=== PATIENT | male | born 1950 | race Caucasian/White ===

== ENCOUNTER 2018-09-22 06:39 | Day surgery (SDC) | payer OTHER, SELFPAY ==
[2018-09-22] MEDS: SODIUM CHLORIDE 0.9% 1,000 ML 150 ML IV (07:20)
[2018-09-22 07:21] VITALS: BP 121/83; PULSE 84; RESP 16; TEMP 36.9; O2SAT 94; BMI 26.7
--- NOTE | 2018-09-22 08:11 | PM.HP.1 ---
History of Present Illness Date Patient Seen: 09/22/18 Time Patient Seen: 08:12 Chief complaint: [id number] SCREENING COLONOSCOPY Narrative: 68-year-old man presents for 1st ever screening colonoscopy. Brother with history of cancer at 72, Sister with polyp No intestinal complaints Prep went well Patient History Medical History (Updated 09/22/18 @ 08:12 by Cedrick Marx MD) Arthritis (Acute) Social History household members: none Family & Social History Social History: household members none Meds Home Medications Medication Instructions Recorded Confirmed Type atorvastatin 20 mg PO DAILY 09/22/18 09/22/18 History Allergies Allergy/AdvReac Type Severity Reaction Status Date / Time No Known Drug Allergies Allergy Verified 09/22/18 07:35 Review of Systems Constitutional Constitutional: Denies fever(s) Eyes Eyes: Denies bulging eyes ENT Ears, Nose, Mouth, and Throat: No lip swelling Cardiovascular Cardiovascular: Denies generalize swelling Respiratory Respiratory: Denies stridor Gastrointestinal Gastrointestinal: Denies coffee ground emesis Musculoskeletal Musculoskeletal: Denies loss of height Integumentary/Breasts Skin/Breast: Denies wounds Neurologic Neurologic: Denies abnormal speech and Denies confusion Psychiatric Psychiatric: Denies confusion Endocrine Endocrine: Denies deepening of the voice Hematologic/Lymphatic Hematologic/Lymphatic: Denies lymphadenopathy Allergic/Immunologic Allergic/Immunologic: Denies lip swelling Exam Vital Signs (past 8 hours): - 09/22/18 07:21 Temperature 98.4 F Pulse Rate 84 Respiratory Rate 16 Blood Pressure 121/83 Pulse Oximetry 94 Oxygen Delivery Method Room Air Const General: cooperative and healthy appearing Orientation: alert HENMT Head: normal to inspection Nose: nares normal Mouth: oral mucosae normal and lip normal Eyes Eyelids: eyelids normal Conjunctivae: conjunctivae normal Sclera: sclerae normal Neck Neck: supple and other (No thyromegally) Chest Chest: other (LCTAB , regular respiratory effort) Cardio Rhythm: regular rhythm Heart Sounds: S1 normal, S2 normal, no gallops, no murmurs and no rubs Skin General: no rashes or lesions noted Neuro General: alert and awake Psych Appearance: grossly normal Affect: normal affect Assessment & Plan Assessment & Plan narrative: 68-year-old man here for 1st ever colonoscopy Risks of procedure including bleeding perforation, , hypoxia, missed lesion discussed Patient ready to proceed
[2018-09-22] MEDS: GLUCAGON,HUMAN RECOMBINANT 1 MG/ML VIAL IV (09:11)
[2018-09-22] MEDS: fentaNYL 250 MCG/5 ML INJ IV (10:02)
[2018-09-22] MEDS: MIDAZOLAM 5 MG/5 ML VIAL IV (10:03)
[2018-09-22] MEDS: EPINEPHrine 1 MG/10 ML SYRINGE INJ (10:06)
[2018-09-22 10:29] VITALS: BP 104/56; PULSE 63; RESP 17; TEMP 36.8; O2SAT 95
--- NOTE | 2018-09-22 10:30 | PATH_ITS ---
[facility] Accession Number: [id number] . 01 Material submitted: . PART A: body - POLYP AT 30 PART B: colon - ASCENDING COLON POLYP PART C: colon - HEPATIC FLEXURE POLYP PART D: colon - TRANSVERSE COLON POLYP PART E: colon - LEFT COLON POLYP PART F: colon - PROXIMAL SIGMOID COLON POLYP PART G: colon - POLYP DISTAL SIGMOID COLON AT 20 . 01 Clinical history: . B-E,F: SESSILE . 02 Diagnosis: A. Colon at 30 cm, Polyp: Colonic mucosa with no diagnostic abnormality, consistent with polypoid redundancy. Negative for serrated lesion, dysplasia or malignancy. . B. Ascending Colon, Polyp: Tubular adenoma. . C. Hepatic Flexure, Polyp: Tubular adenoma. . D. Transverse Colon Polyp: Colonic mucosa with no diagnostic abnormality, consistent with polypoid redunancy. Negative for serrated lesion, dysplasia or malignancy. . E. Left Colon, Polyp: Tubular adenoma. . F. 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 See Cancer Case Summary. Carcinoma free of cauterized stalk margin by 8 mm. . G. Distal Sigmoid Colon, at 20 cm, Polyps: Tubulovillous adenoma, fragmented. Negative for high-grade dysplasia or malignancy. . CANCER CASE SUMMARY (PART B) Tumor site: Sigmoid colon. Specimen integrity: Intact. Polyp size: Greatest dimension: 1.5 cm. Polyp configuration: Pedunculated with stalk. Stalk length: 0.9 cm. Size of invasive carcinoma: Greatest dimension: 0.5 cm. Histologic type: Adenocarcinoma. Histologic grade: G2-moderately differentiated. Tumor extension: Tumor invades submucosa. Margins: Deep stalk margin uninvolved by invasive carcinoma. Distance of invasive carcinoma from margin: 8 mm. Lymphovascular invasion: Not identified. Tumor budding: Number of tumor buds in one hot spot field: One. Low score (0-4). Type of polyp in which invasive carcinoma arose: Tubulovillous adenoma. [facility]/09/28/2018 . 02 Comment: Part F) Immunohistochemical stains for DNA mismatch repair proteins are pending and results will be issued in an addendum. . As part of routine quality control associate, Dr. Hoyt has reviewed part F of this case and agrees with the diagnosis of superficially invasive adenocarcinoma. The finding of superfically invasive adenocarcinoma was reported to Dr. Marx via his nurse Sherry by Dr. Jas Person on 09/28/2018 at 2:00PM. . 02 Electronically signed: . Jas Person MD, PhD, Pathologist NPI- [id number] . 01 Gross description: . Part A: POLYP AT 30: Received in formalin is 1 fragment(s) of delgado, soft tissue measuring 0.3 x 0.3 x 0.1 cm which is entirely submitted and submitted entirely in 1 cassette(s) Part B: ASCENDING COLON POLYP: Received in formalin is 1 fragment(s) of delgado, soft tissue measuring 0.3 x 0.3 x 0.2 cm which is entirely submitted and submitted entirely in 1 cassette(s) Part C: HEPATIC FLEXURE POLYP: Received in formalin is 1 fragment(s) of delgado, soft tissue measuring 0.4 x 0.3 x 0.2 cm which is entirely submitted and submitted entirely in 1 cassette(s) Part D: TRANSVERSE COLON POLYP: Received in formalin is 1 fragment(s) of delgado, soft tissue measuring 0.3 x 0.2 x 0.2 cm which is entirely submitted and submitted entirely in 1 cassette(s) Part E: LEFT COLON POLYP: Received in formalin is 1 fragment(s) of delgado, soft tissue measuring 0.5 x 0.4 x 0.2 cm which is entirely submitted and submitted entirely in 1 cassette(s) Part F: PROXIMAL SIGMOID COLON POLYP: Received in formalin is 1 fragment(s) of delgado, soft tissue measuring 1.5 x 1.1 x 1.4 cm which is serially sectioned and submitted entirely in 3 cassette(s) Part G: POLYP DISTAL SIGMOID COLON AT 20: Received in formalin are 4 fragment(s) of delgado, soft tissue measuring 0.2 x 0.2 x 0.1 cm to 1.1 x 1.0 x 1.8 cm which is serially sectioned and submitted entirely in 3 cassette(s) /DM /DM . 02 Pathologist provided ICD-10: D12.2, D12.3, D12.5, K63.5, C18.7 . 02 CPT . 083028, 956640, 032977, 366544, 110104, 862239, 809279, H25117, B77879 Performed at: 01 [facility] [address] [place] [address], [place], [place] [id number] MD Mo Garces MD Phone: [phone] Performed at: 02 [facility] [address] [place], [place] [id number] MD Osiris Hoyt MD Phone: [phone]
--- NOTE | 2018-09-22 10:39 | P.OP.ENDO_ITS ---
Operative Date/Time/Diagnoses Date of procedure: 09/22/18 Time of procedure: 10:22 Pre-op diagnosis: Family history of colon cancer Post-op diagnosis: other (Numerous polyps, including incompletely resected large sessile polyp in the distal sigmoid colon) Procedure & Clinicians Study performed: Screening colonoscopy -complete Right colon small sessile polypectomy -cold biopsy forceps Hepatic flexure small sessile polypectomy -cold biopsy forceps Transverse colon small sessile polypectomy-cold biopsy forceps Left colon small sessile polypectomy -removed with submucosal injection and hot snare Proximal sigmoid large pedunculated polypectomy -hot snare at 30cm Distal sigmoid colon large sessile partial polypectomy -hot snare 20 cm - tattooed Same procedure as scheduled: Yes Indications: [age] year old man presents for 1st ever screening colonoscopy -his brother was recently diagnosed with colon cancer at in his early 70s, his sister has known history of colon polyps. Surgeon: Cedrick Marx Procedure Notes SCOAP/Timeout: Completed Procedure in detail: Patient was brought to the endoscopy suite a time-out was completed, he was sedated without incident. Over the course of the entire procedure he received a total of 8 mg of midazolam and 275 micro g of fentanyl. A digital rectal exam was performed -this demonstrated a very large but soft prostate. No lesions palpated within the anal canal. 160 cm colonoscope was introduced through the anus and used to navigate through the numerous folds of the rectum and colon. The sigmoid colon itself was quite tortuous -with extensive diverticulosis without evidence of active inflammation. The colon itself was quite redundant and long. Several passes through the proximal portion of the colon were necessary to straighten it and allow the 160 cm scope to reach the cecum. The cecum was clearly identified with the appendiceal orifice as well as a prominent ileocecal valve identified. The scope was slowly withdrawn visualizing and inspecting the mucosa. There was some residual debris left over after the prep that was irrigated and suctioned out for good visualization. Upon withdrawing there were multiple polyps identified. The small polyps within the ascending colon, hepatic flexure, and transverse colonwere easily removed with Jumbo biopsy forceps. A small sessile polyp of the left colon was identified-it was lifted from the submucosa with the injection of saline and easily snared then with a hot snare. It was retrieved via the suction trap. Upon entering into the sigmoid colon at 30 cm a large pedunculated polyp was encountered it had a generous stock. The stalk itself was ensnared -taking with the specimen a reasonable portion of the stalk itself. With bursts of electrocautery the polyp was amputated at the stalk. A net was used to capture the polyp and it with the scope was brought out the anus. The scope was readvanced to the side resection there was no residual polyp. Scope was then withdrawn further a quite large sessile polyp was encountered at 20 cm -this was snared with a hot snare. Due to the size it was unclear whether not there was a stalk initially. This polyp was also grasped with a retrieval net brought out the rectum. Upon reinserted on reinspection the base was hemostatic however there was a sizable amount of polyp remaining. The area of residual polyp was lifted with submucosal injection -and several attempts to snare were attempted -however with the geometry of the sessile base spanning over a fold -I was not able to get the snare around the remaining portions. As a consequence I injected just distally 1 cc of Jami ink submucosally in 4 quadrants. There were no further. Lesions identified Upon reaching the rectum the scope was retroflexed without lesion Prep was adequate Scope withdrawal time: 91 Findings: other findings Specimen(s): other (1 R colon small sessile poly, 2 Hepatic flexure small sessile polyp, 3 Transverse colon small sessile polyp, 4 Left colon small sessile polyp, 5 Prox sigmoid lg pedu polyp, 6 dist sig colon large sessile polyp) Complications: none Impression: 1) extensive sigmoid diverticulosis 2) enlarged but soft prostate 3) Right colon small sessile polyp 4) Hepatic flexure small sessile polyp 5) Transverse colon small sessile polyp 6) Left colon small sessile polyp 7) Proximal sigmoid large pedunculated polyp at 30cm completely removed 8) Distal sigmoid colon large sessile polyp -incompletely removed -tattooed Recommendations: Other recommendation (Follow-up with GI for attempt at complete resection of distal sigmoid colon large sessile polyp) Plan for aftercare: Follow-up with GI Follow up: weeks Disposition: PACU
[2018-09-22 10:42] VITALS: BP 116/76; PULSE 64; RESP 15; TEMP 36.2; O2SAT 97
== END 2018-09-22 10:44 | disposition home or self-care (01) ==
LOC: ENDO 06:41
PROVIDERS: PCP Internal Medicine; Visit Provider Surgery
PROC: 0DJD8ZZ Inspection of Lower Intestinal Tract, Via Natural or Artificial Opening Endoscopic (ICD-10-PCS; CPT 45378; principal; 2018-09-22 07:45)
DX: Z12.11 Encounter for screening for malignant neoplasm of colon (principal); C18.7 Malignant neoplasm of sigmoid colon; D12.2 Benign neoplasm of ascending colon; D12.3 Benign neoplasm of transverse colon; D12.4 Benign neoplasm of descending colon; K63.5 Polyp of colon; K57.30 Diverticulosis of large intestine without perforation or abscess without bleeding; Z80.0 Family history of malignant neoplasm of digestive organs; N40.0 Benign prostatic hyperplasia without lower urinary tract symptoms
CPT/HCPCS: 45381; 45385; 45380; 99152; 99153; J0171; J1610; J2250; J3010

== ENCOUNTER 2019-01-18 11:50 | Day surgery (SDC) | payer OTHER, SELFPAY ==
--- NOTE | 2019-01-18 | PATH_ITS ---
[facility] Accession Number: [id number] . 01 Material submitted: . PART A: colon - TRANSVERSE COLON BIOPSY PART B: colon - SIGMOID POLYP . 01 Clinical history: . COLONOSCOPY W/POSS BX . 02 Diagnosis: A. Transverse Colon, Biopsy: Tubular adenoma. . B. Sigmoid Colon, Polyp, Biopsy: Hyperplastic polyp. MRV 01/19/2019 1253 Local . 02 Electronically signed: . Osiris Hoyt MD, Pathologist NPI- [id number] . 01 Gross description: . Part A: TRANSVERSE COLON BIOPSY: Received in formalin is 1 fragment(s) of delgado, soft tissue measuring 0.2 x 0.1 x 0.1 cm submitted entirely in 1 cassette(s) Part B: SIGMOID POLYP: Received in formalin are multiple fragment(s) of delgado, soft tissue measuring 0.1 x 0.1 x 0.1 cm to 0.3 x 0.2 x 0.2 cm submitted entirely in 1 cassette(s) /[facility] 01/18/2019 2153 Local . 02 Pathologist provided ICD-10: D12.3 . 02 CPT . 588945, 187856 Performed at: 01 [facility] [address] [facility] [place], [place], [place] [id number] MD Mo Garces MD Phone: [phone] Performed at: 02 [facility] [address] [place], [place] [id number] MD Osiris Hoyt MD Phone: [phone]
[2019-01-18 12:22] VITALS: BP 131/85; PULSE 99; RESP 16; TEMP 37; O2SAT 93; BMI 26.4
[2019-01-18] MEDS: SODIUM CHLORIDE 0.9% 1,000 ML 150 ML IV (12:31)
[2019-01-18] MEDS: MIDAZOLAM 5 MG/5 ML VIAL IV (13:53)
[2019-01-18] MEDS: fentaNYL 250 MCG/5 ML INJ IV (13:54)
--- NOTE | 2019-01-18 13:56 | PM.OP.ENDO ---
Operative Date/Time/Diagnoses Date of procedure: 01/18/19 Time of procedure: 13:57 Pre-op diagnosis: See indication and findings Procedure & Clinicians Study performed: Colonoscopy Same procedure as scheduled: Yes Indications: Incompletely removed colon polyps in the sigmoid, need for further treatment Surgeon: Yogi Mcdowell Procedure Notes Procedure in detail: After informed consent was obtained the patient was placed in left lateral decubitus position. The video colonoscope was introduced the rectum slowly advanced cecum. Preparation was good. On slow withdrawal mucosa was carefully examined. The scope was removed. The patient tolerated procedure well. Blood loss none Complications none Sedation Total sedation time 18 minutes Versed 7 mg fentanyl 100 micro g IV titration Findings 1. Extensive sigmoid diverticulosis 2. Small 6 mm sessile colon polyp in the transverse colon Jumbo biopsy removed completely 3. Extensive tattoo in the distal sigmoid. In this area there is no clear single residual polyp. There was a 6 mm polyp which was removed with a cold snare. There were also 3 other 3-4 mm polyps not grouped together which were all removed with Jumbo biopsy forceps and placed in the same jar. I think it is most likely that the polyp that was thought to be of incompletely removed. It may be that cautery used in the area of may have caused a sloughing of most of the residual polyp. Will merely await pathology and suggest follow-up colonoscopy in 1 year.
[2019-01-18 14:03] VITALS: BP 120/78; PULSE 84; RESP 16; TEMP 37.3; O2SAT 94
[2019-01-18 14:08] VITALS: BP 119/76; PULSE 80; RESP 14; O2SAT 95
[2019-01-18 14:13] VITALS: BP 125/81; PULSE 83; RESP 24; O2SAT 95
[2019-01-18 14:21] VITALS: BP 115/73; PULSE 86; RESP 19; TEMP 37.1; O2SAT 96
[2019-01-18 14:30] VITALS: BP 122/75; PULSE 87; RESP 14; TEMP 36.7; O2SAT 95
--- NOTE | 2019-03-07 09:50 | PM.HP.1 ---
History of Present Illness History of Present Illness Date Patient Seen: 01/18/19 Chief complaint: [id number] COLONOSCOPY W/POSS BX Narrative: Residual colon polyp, need for removal Patient History Medical History (Updated 03/07/19 @ 09:51 by Yogi Mcdowell MD) Arthritis (Acute) Family & Social History Social History: household members none Meds Home Medications and Allergies Home Medications Medication Instructions Recorded Confirmed Type atorvastatin 20 mg PO DAILY 09/22/18 01/18/19 History Allergies Allergy/AdvReac Type Severity Reaction Status Date / Time No Known Drug Allergies Allergy Verified 01/18/19 12:21 Exam Vital Signs (past 8 hours): Oxygen Delivery Method Room Air Narrative Exam Narrative: Oropharynx free of lesion Chest clear to AP Cardiac exam reveals no S3 or murmur Assessment & Plan Assessment & Plan narrative: Residual polyp likely present from 09/14 colonoscopy - need to assess and remove if present. RBAs explained.
== END 2019-01-18 14:35 | disposition home or self-care (01) ==
LOC: ENDO 11:54
PROVIDERS: PCP Internal Medicine; Visit Provider Internal Medicine Gastroenterology
PROC: 0DJD8ZZ Inspection of Lower Intestinal Tract, Via Natural or Artificial Opening Endoscopic (ICD-10-PCS; CPT 45378; principal; 2019-01-18 13:30)
DX: D12.5 Benign neoplasm of sigmoid colon (principal); D12.3 Benign neoplasm of transverse colon; K57.30 Diverticulosis of large intestine without perforation or abscess without bleeding
CPT/HCPCS: 45380; J2250; J3010

== ENCOUNTER → 2019-05-01 14:38 | Outpatient (ROUT) | payer MEDICARE, SELFPAY ==
[2019-05-01 15:45] LABS: Alanine Aminotransferase 18 IU/L (<50); Albumin 4.3 g/dL (3.5-5.0); Albumin Globulin Ratio 1.5 (1.0-2.8); Alkaline Phosphatase 72 U/L (38-126); Aspartate Aminotransferase 25 IU/L (17-59); BUN Creatinine Ratio 27.1 (6-22); Bilirubin Total 0.4 mg/dL (0.2-1.3); Blood Urea Nitrogen 19 mg/dL (9-20); Calcium 9.8 mg/dL (8.4-10.2); Carbon Dioxide 28 mmol/L (22-32); Chloride 101 mmol/L (98-107); Cholesterol 139 mg/dL (140-199); Estimated Glomerular Filt Rate > 60.0 mL/min (>60); Globulin 2.9 g/dL (1.7-4.1); Glucose 93 mg/dL (80-110); HDL Cholesterol 45 mg/dL (40-60); HEMOLYSIS < 15 (0-50); LDL Cholesterol Calculated 83 mg/dL (<100); Potassium 4.4 mmol/L (3.4-5.1); Sodium 139 mmol/L (137-145); Total Protein 7.2 g/dL (6.3-8.2); Triglycerides 55 mg/dL (35-150)
== END ==
PROVIDERS: PCP Internal Medicine; Visit Provider Internal Medicine
DX: Z00.00 Encounter for general adult medical examination without abnormal findings (principal); E78.2 Mixed hyperlipidemia; M15.8 Other polyosteoarthritis
CPT/HCPCS: 80053; 80061

== ENCOUNTER → 2020-05-06 11:50 | Outpatient (CLI) | payer MEDICARE, SELFPAY ==
[2020-05-06 13:13] LABS: Alanine Aminotransferase 15 IU/L (<50); Albumin Globulin Ratio 1.4 (1.0-2.8); Alkaline Phosphatase 79 U/L (38-126); Aspartate Aminotransferase 20 IU/L (17-59); BUN Creatinine Ratio 26.1 (6-22); Bilirubin Total 0.3 mg/dL (0.2-1.3); Blood Urea Nitrogen 18 mg/dL (9-20); Calcium 9.4 mg/dL (8.4-10.2); Carbon Dioxide 31 mmol/L (22-32); Chloride 104 mmol/L (98-107); Cholesterol 163 mg/dL (140-199); Estimated Glomerular Filt Rate > 60.0 mL/min (>60); Globulin 2.8 g/dL (1.7-4.1); Glucose 90 mg/dL (80-110); HDL Cholesterol 49 mg/dL (40-60); HEMOLYSIS < 15 (0-50); LDL Cholesterol Calculated 97 mg/dL (<100); Potassium 4.7 mmol/L (3.4-5.1); Sodium 137 mmol/L (137-145); Total Protein 6.8 g/dL (6.3-8.2); Triglycerides 87 mg/dL (35-150)
[2020-05-06 13:38] LABS: Prostate Specific Antigen Scrn 4.41 ng/mL (0.1-4.0)
== END ==
PROVIDERS: PCP Internal Medicine; Referring Provider Internal Medicine; Visit Provider Internal Medicine
DX: Z00.00 Encounter for general adult medical examination without abnormal findings (principal); E78.2 Mixed hyperlipidemia; Z12.5 Encounter for screening for malignant neoplasm of prostate
CPT/HCPCS: 36415; 80053; 80061; G0103

== ENCOUNTER → 2020-06-05 13:37 | Outpatient (CLI) | payer MEDICARE, SELFPAY ==
[2020-06-05] MEDS: COVID-19 VACC, Ad26(JANSSEN)/PF 0.5 ML IM (13:40)
== END ==
PROVIDERS: PCP Internal Medicine; Visit Provider Internal Medicine
DX: Z23 Encounter for immunization (principal)
CPT/HCPCS: 0031A; 91303

== ENCOUNTER → 2020-10-07 13:35 | Outpatient (CLI) | payer OTHER, SELFPAY ==
[2020-10-07 15:20] LABS: COVID19 -Nasal RAPID Negative (Negative)
== END ==
PROVIDERS: PCP Internal Medicine; Visit Provider Physician Assistant
DX: Z01.812 Encounter for preprocedural laboratory examination (principal); Z20.822 Contact with and (suspected) exposure to COVID-19
CPT/HCPCS: 87635

== ENCOUNTER 2020-10-09 08:40 | Day surgery (SDC) | payer OTHER, SELFPAY ==
--- NOTE | 2020-10-09 | PATH_ITS ---
[facility] Accession Number: [id number] . 01 Material submitted: . colon - POLYP AT TRANSVERSE COLON . 01 Clinical history: . COLONOSCOPY W/POSS BX . 02 Diagnosis: Transverse Colon, Polyp, Biopsy: Serrated lesion, favor sessile serrated adenoma. MRV 10/14/2020 1116 Local . 02 Electronically signed: . Osiris Hoyt MD, Pathologist NPI- [id number] . 01 Gross description: . POLYP AT TRANSVERSE COLON: Received in formalin is 1 fragment(s) of delgado, soft tissue measuring 0.5 x 0.3 x 0.3 cm submitted entirely in 1 cassette(s) /[facility] 10/10/2020 0557 Local . 02 Pathologist provided ICD-10: D12.3 . 02 CPT . 491006 Performed at: 01 [facility] [address], [place], [place] [id number] MD Mo Garces MD Phone: [phone] Performed at: 02 [facility] [address] [place], [place] [id number] MD Osiris Hoyt MD Phone: [phone]
[2020-10-09 09:01] VITALS: BP 121/79; PULSE 72; RESP 16; TEMP 36.2; O2SAT 94; BMI 26.9
[2020-10-09] MEDS: SODIUM CHLORIDE 0.9% 1,000 ML 84 ML IV (09:15)
--- NOTE | 2020-10-09 09:38 | PM.OP.ENDO ---
Procedure & Clinicians Study performed: Colonoscopy Indications: Large sigmoid colon polyp removed need to check for complete removal. Also family history of colon polyps and colon cancer Surgeon: Yogi Mcdowell Procedure Notes Procedure in detail: After informed consent was obtained the patient was placed in left lateral decubitus position. The video colonoscope was introduced the rectum slowly advanced cecum. On slow withdrawal mucosa was carefully examined. Preparation was good to fair. The scope was removed. The patient tolerated procedure well. Blood loss none Complications none Sedation Total sedation time 20 minutes Versed 6 mg fentanyl 100 mg IV titration Findings 1. Extensive sigmoid and left-sided diverticulosis 2. Extensive tattooing at the rectosigmoid junction but no evidence of residual polyp 3. 4 mm polyp at the distal transverse colon Jumbo biopsy removed completely 4. Otherwise negative colonoscopy to cecum. Will be in touch regarding biopsies but Mr. Velazco will need follow-up colonoscopy in 5 years.
--- NOTE | 2020-10-09 09:52 | PM.HP.1 ---
History of Present Illness History of Present Illness Chief complaint: COLONOSCOPY W/POSS BX Narrative: history of large sigmoid colon polyp removed need to check for complete removal Patient History Medical History (Updated 08/14/20 @ 11:46 by Donovan Montgomery MD) Arthritis BPH w urinary obs/LUTS Elevated PSA Microscopic hematuria Surgical History (Updated 08/14/20 @ 13:21 by Jacinta Ceballos, RN) H/O vasectomy Family & Social History Family History (Updated 08/14/20 @ 13:20 by Jacinta Ceballos, RN) Brother Cancer Father CAD (coronary artery disease) Mother Hypertension Social History: household members none Tobacco & Substance use: Smoking Status Never smoker alcohol intake current alcohol intake frequency a few times a week Substance Use Type does not use Meds Home Medications and Allergies Home Medications Medication Instructions Recorded Confirmed Type atorvastatin 20 mg tablet 20 mg PO DAILY 09/22/18 08/14/20 History tamsulosin 0.4 mg capsule 0.4 mg PO BEDTIME #90 cap 08/14/20 08/14/20 Rx Allergies Allergy/AdvReac Type Severity Reaction Status Date / Time No Known Drug Allergies Allergy Verified 08/14/20 11:06 Exam Vital Signs (past 8 hours): - 10/09/20 09:01 Temperature 97.2 F L Pulse Rate 72 Respiratory Rate 16 Blood Pressure 121/79 Pulse Oximetry 94 Oxygen Delivery Method Room Air Narrative Exam Narrative: oropharynx free of lesions Chest clear to auscultation percussion Cardiac exam reveals no S3 or murmur Assessment & Plan Assessment & Plan narrative: history of large sigmoid colon polyp removal need to check for complete removal or recurrence of any other colon polyps. Risks, benefits, alternatives have been explained.
[2020-10-09] MEDS: fentaNYL 250 MCG/5 ML INJ IV (10:31)
[2020-10-09] MEDS: MIDAZOLAM 5 MG/5 ML VIAL IV (10:39)
[2020-10-09 10:54] VITALS: BP 124/75; PULSE 65; RESP 14; TEMP 36.3; O2SAT 94
[2020-10-09 10:59] VITALS: BP 123/77; PULSE 66; RESP 14; O2SAT 95
[2020-10-09 11:04] VITALS: BP 125/70; PULSE 60; RESP 16; O2SAT 95
--- NOTE | 2020-10-09 11:08 | SUR.PHASEI ---
Received to PACU at 1054 after colonoscopy with sedation. Airway maintained without assistance. Pt awake. Report from ARNAUD Pinzon.
[2020-10-09 11:09] VITALS: BP 125/70; PULSE 62; RESP 15; TEMP 36.3; O2SAT 95
[2020-10-09 11:10] VITALS: BP 115/70; PULSE 61; RESP 15; TEMP 36.2; O2SAT 95
== END 2020-10-09 11:23 | disposition home or self-care (01) ==
PROVIDERS: PCP Internal Medicine; Referring Provider Internal Medicine Gastroenterology; Visit Provider Internal Medicine Gastroenterology
PROC: 0DJD8ZZ Inspection of Lower Intestinal Tract, Via Natural or Artificial Opening Endoscopic (ICD-10-PCS; CPT 45378; principal; 2020-10-09 10:00)
DX: Z09 Encounter for follow-up examination after completed treatment for conditions other than malignant neoplasm (principal); Z86.010 Personal history of colon polyps; Z80.0 Family history of malignant neoplasm of digestive organs; K57.30 Diverticulosis of large intestine without perforation or abscess without bleeding; D12.3 Benign neoplasm of transverse colon
CPT/HCPCS: 45380; J2250; J3010

== ENCOUNTER → 2020-12-03 10:20 | Outpatient (CLI) | payer OTHER, SELFPAY ==
[2020-12-03 11:38] LABS: Prostate Specific Antigen 3.89 ng/mL (0.10-4.00)
== END ==
PROVIDERS: PCP Internal Medicine; Referring Provider Specialist; Visit Provider Specialist
DX: N40.1 Benign prostatic hyperplasia with lower urinary tract symptoms (principal); R97.20 Elevated prostate specific antigen [PSA]; N13.8 Other obstructive and reflux uropathy
CPT/HCPCS: 36415; 84153

== ENCOUNTER → 2021-12-22 09:31 | Outpatient (CLI) | payer OTHER, SELFPAY ==
[2021-12-22 12:58] LABS: Prostate Specific Antigen 4.83 ng/mL (0.10-4.00)
== END ==
PROVIDERS: Referring Provider Specialist; Visit Provider Specialist
DX: R97.20 Elevated prostate specific antigen [PSA] (principal)
CPT/HCPCS: 36415; 84153

== ENCOUNTER → 2022-01-05 11:07 | Outpatient (CLI) | payer OTHER, SELFPAY ==
[2022-01-05 14:19] LABS: BUN Creatinine Ratio 22.4 (6-22); Blood Urea Nitrogen 17 mg/dL (9-20); Calcium 9.3 mg/dL (8.4-10.2); Carbon Dioxide 27 mmol/L (22-32); Chloride 103 mmol/L (98-107); Estimated Glomerular Filt Rate > 60 mL/min (>60); Glucose 84 mg/dL (80-110); HEMOLYSIS < 15 (0-50); Potassium 4.1 mmol/L (3.4-5.1); Sodium 138 mmol/L (137-145)
== END ==
PROVIDERS: PCP Physician Assistant; Referring Provider Specialist; Visit Provider Specialist
DX: R31.29 Other microscopic hematuria (principal)
CPT/HCPCS: 36415; 80048

== ENCOUNTER → 2022-01-07 09:40 | Outpatient (CLI) | payer OTHER, SELFPAY ==
--- NOTE | 2022-01-07 09:43 | DI.CT.S_ITS ---
PROCEDURE: CT IVP A/P W/WO INDICATIONS: Hematuria TECHNIQUE: Optional 5 mm thick noncontrast images acquired from the diaphragm to the symphysis pubis. After the administration of intravenous contrast, 5 mm thick images acquired from the diaphragm to the symphysis pubis after a 10-minute delay. 2 mm thick coronal and sagittal reformats were then performed of the kidneys and ureters. For radiation dose reduction, the following was used: automated exposure control, adjustment of mA and/or kV according to patient size. COMPARISON: None. FINDINGS: Image quality: Excellent Lower chest: Suspected basal atelectasis and scarring. Solid organs: There are hepatic cysts. Subcentimeter lesions are too small to characterize.. Ill-defined hypoattenuating region adjacent to the falciform ligament measures 16 x 15 mm. Gallbladder is unremarkable. No biliary ductal dilation. No splenomegaly. No adrenal nodule. No hydronephrosis. Multiple parapelvic cysts are present. Bosniak 1 and 2 renal lesions are present, for which no dedicated followup is necessary per 2019 proposed guidelines. No definite ureter mass. No filling defect. The left UVJ appears to enter the bladder through an area of prostate enlargement versus bladder wall thickening (3/212). No obvious signs of obstruction. No bladder stones are identified. There is mild wall thickening of the bladder. Tiny bladder diverticula. Prostate is enlarged, with probable median lobe hypertrophy at the base of the bladder. Prostate is not well evaluated on CT. Vessels and lymph nodes: No abdominal aortic aneurysm. Ectatic celiac trunk. Bowel and peritoneum: No bowel obstruction. There are colonic diverticula. Body wall: Fat and omentum containing umbilical hernia. Bilateral fat containing inguinal hernias. Pelvis: Prostate findings as above. No other significant findings. Bones: No acute or suspicious osseous abnormality. Scattered degenerative changes. Age-indeterminate height loss of some vertebral bodies may be related to disc disease or past injury. Most notable at T12 and L1. L5 on S1 anterolisthesis and pars defects. IMPRESSION: No upper tract disease to attribute for hematuria. No hydronephrosis or obstructing calculi. Prostate enlargement with probable median lobe hypertrophy possibly focally involving the left UVJ, without signs of obstruction at this time. There is also mild diffuse bladder wall thickening. Tiny bladder diverticula are present. Lower tract disease evaluation is recommended with cystoscopy in the setting of hematuria if indicated Other incidental findings above.. Dictated by: Sunny Gaxiola M.D. on 01/07/2022 at 11:51 Approved by: Sunny Gaxiola M.D. on 01/07/2022 at 12:00
== END ==
PROVIDERS: PCP Physician Assistant; Referring Provider Specialist; Visit Provider Specialist
DX: R31.29 Other microscopic hematuria (principal); N40.0 Benign prostatic hyperplasia without lower urinary tract symptoms; K76.89 Other specified diseases of liver; K57.90 Diverticulosis of intestine, part unspecified, without perforation or abscess without bleeding; K42.9 Umbilical hernia without obstruction or gangrene; K40.20 Bilateral inguinal hernia, without obstruction or gangrene, not specified as recurrent
CPT/HCPCS: 74178; Q9967

== ENCOUNTER → 2022-01-16 11:41 | Outpatient (CLI) | payer MEDICARE, SELFPAY ==
[2022-01-16 12:53] LABS: COVID19 -Nasal RAPID Negative (Negative)
== END ==
PROVIDERS: PCP Physician Assistant; Visit Provider Specialist
DX: Z20.822 Contact with and (suspected) exposure to COVID-19 (principal)
CPT/HCPCS: 87635

== ENCOUNTER 2022-01-19 09:07 | Day surgery (SDC) | payer MEDICARE, SELFPAY ==
[2022-01-19] VITALS (10 sets, daily range): BP systolic 124–136; BP diastolic 70–83; PULSE 63–81; RESP 12–18; TEMP 36.3–36.4; O2SAT 92–98; BMI 27.5
--- NOTE | 2022-01-19 | PATH_ITS ---
[facility] Accession Number: [id number] . 01 Material submitted: . bladder - LEFT LATERAL FLOOR AND TRIGONE . 01 Diagnosis: Urinary Bladder, Left Lateral Floor and Trigone, Transurethral Bladder Tumor Resection (TURBT): Papillary urothelial carcinoma. Histologic grade: High grade. Tumor extension: No definite invasion into the lamina propria (subepithelial connective tissue). Muscularis propria: Present, not involved. Negative for lymphovascular invasion. MRV 01/22/2022 1508 Local . 01 Electronically signed: . Nj Marcelo MD, Pathologist NPI- [id number] . 01 Gross description: . LEFT LATERAL FLOOR AND TRIGONE: Received in formalin are multiple fragment(s) of delgado, soft tissue measuring 1.0 x 1.0 x 0.2 cm in aggregate submitted entirely in 1 cassette(s) /CPE 01/21/2022 1023 Local . 01 Pathologist provided ICD-10: C67.0 . 01 CPT . 071911 Specimen Comment: A courtesy copy of this report has been sent to [phone] Performed at: 01 [facility] [address] [place] [id number] MD Mo Garces MD Phone: [phone]
--- NOTE | 2022-01-19 09:56 | PM.PREOP ---
Pre-operative Note COVID-19 Criteria for continued procedure: Expected advancement of disease process, Possibility delay results in more complex future surgery or treatment, Deterioration of the patient's condition or overall health, Delay expected to result in less-positive ultimate med/surg outcome and Non-surgical alternatives not available or appropriate per current SOC Interval Note History & Physical reviewed/Exam performed by Physician: Yes Changes to H&P: No
[2022-01-19] MEDS: LACTATED RINGERS 1,000 ML 42 ML IV ×2 (10:16→11:59)
[2022-01-19] MEDS: CEFAZOLIN 2 GM/100 ML PREMIX 100 ML IV (10:40)
[2022-01-19] MEDS: TRANEXAMIC ACID 1,000 MG in SODIUM CHLORIDE 0.9% 100 ML 200 MG IV (10:58)
--- NOTE | 2022-01-19 11:01 | SUR.OPER ---
Lithotomy on padded OR bed, head on pillow, arms secured on padded arm boards at <90 degrees abduction. Legs secured in padded yellow fins stirrups.
--- NOTE | 2022-01-19 11:08 | SUR.OPER ---
Lithotomy on padded OR bed, head on pillow, arms secured on padded arm boards at <90 degrees abduction. Legs secured in padded yellow fins stirrups.
[2022-01-19] MEDS: WATER FOR INJECTION,STERILE 20 ML, mitoMYcin 20 MG INTRAVESIC (12:19)
--- NOTE | 2022-01-19 12:33 | P.OP_ITS ---
Operative Date/Time/Diagnoses Date of procedure: 01/19/22 Time of procedure: 12:20 Pre-op diagnosis: Bladder neoplasm Post-op diagnosis: same Procedure & Clinicians Procedure: 1. Cystoscopy/Transurethral resection of bladder neoplasm (2 cm to 5 cm). 2. Cystoscopy/installation mitomycin-C (20 mg). 3. Cystoscopy/placement left ureteral stent (8 Green[place]ic times 22-32 cm multi- length). Same procedure as scheduled: Yes Indications: 1. Bladder neoplasm-left floor, left trigone, and left posterior lateral bladder neck. Surgeon: Donovan Montgomery Click Yes if Unassisted: Yes Anesthesia Type: General Operative Notes Findings: 1. Urethra-normal caliber without annular stricture or lesion. 2. External sphincter coapted with normal overlying urothelium. 3. Prostate-5+ cm length with obstructing trilobar hyperplasia and markedly elevated median lobe. 4. Bladder-mixed nodular and spreading neoplasm. Two solid-appearing nodules were evident at the left lower lateral interface of the wall and floor. There was intermediate grade appearing neoplasm extending distally toward the bladder neck and intravesical protrusion of obstructing prostate and then toward the midline in same vicinity. Additionally there was appreciation of spreading neoplasm posterior to the nodular lesions noted above and medially to include the left ureteric ridge, anu ureteral orifice region and trigone. Closure Type: not applicable Specimen(s): other (Bladder neoplasm TUR chips.) Applied: catheter (#24F to a hematuria catheter.) Estimated Blood Loss (mL): 5 Blood products transfused: none Procedure in detail: The patient was positioned supine and was administered general anesthesia. The patient was then repositioned in semi lithotomy and the lower abdomen, genitalia, and groin were then prepped and draped in sterile fashion. The 22 Green[place]ic panendoscope was passed the lower urinary tract careful examination was performed with the findings as described above. A 0.35 hybrid wire was then advanced through the scope and into the left collecting system under direct and fluoroscopic guidance after realization that there was spreading neoplasm throughout the areas described above. Over this a 8 Green[place]ic by 22-32 cm multi- length stent was advanced over the hybrid guidewire, again under direct and fluoroscopic guidance. NO RETRIEVAL LINE WAS LEFT ATTACHED. Panendoscope was then removed and the resectoscope was advanced lower urinary tract again with the findings as described above. The working element was fitted with a thin loop. Anesthesia was asked to paralyze the patient. After approximately 5 minutes meticulous resection of the solid in mixed solid and papillary, exophytic tumors as described above were resected into muscle fiber. The cautery element was then used to broadly and superficially destroy the spreading urothelial neoplasm in all areas visualized including that of the left ureteric ridge and periureteral orifice area. The cautery mode of the loop was also used to attain hemostasis. All chips and a few small clots were then removed from the bladder with the assistance of the [employer] evacuator. The bladder was then left partially filled in the resectoscope was removed. A [address] hematuria catheter was then advanced lower urinary tract in the bladder contents drained. The balloon was filled to 10 cc. A 20 cc solution containing 20 mg mitomycin-C were then instilled in the bladder and a catheter plug fitted to the outflow for anticipated 2 hour retention. The patient was then repositioned in supine, awakened, transferred to [facility] and then transported to PACU in stable condition. Complications: none Post-operative Condition: stable Disposition: PACU Plan for aftercare: 1. Mitomycin retention x2 hours. 2. Discharge home after #1.
--- NOTE | 2022-01-19 12:43 | SUR.PHASEI ---
Upon arrival to Pac[facility], alvarez catheter not clamped. Dr Montgomery notified and pharmacy called to get another dose of mitomycin for Dr Diamond to instil in pt bladder.
[2022-01-19] MEDS: OXYCODONE IR 5 MG TABLET PO ×2 (13:16→14:08)
--- NOTE | 2022-01-19 15:40 | SUR.PHASEII ---
1430: Dr Montgomery notified of no supply of mytomycin in pharmacy. Pt will f/u with doctors office in am and schedule to get mytomycin in office.
== END 2022-01-19 15:15 | disposition home or self-care (01) ==
LOC: OR 09:08 → AC 09:09
PROVIDERS: PCP Physician Assistant; Referring Provider Specialist; Visit Provider Specialist
PROC: 0TBB8ZZ Excision of Bladder, Via Natural or Artificial Opening Endoscopic (ICD-10-PCS; CPT 52235; principal; 2022-01-19 10:45)
PROC: (CPT 52235; 2022-01-19 10:45)
DX: C67.8 Malignant neoplasm of overlapping sites of bladder (principal); N40.1 Benign prostatic hyperplasia with lower urinary tract symptoms; N13.8 Other obstructive and reflux uropathy
CPT/HCPCS: 52235; 52332; 00912; 82962; J0690; J2250; J3010; J9280

== ENCOUNTER → 2022-03-03 09:22 | Outpatient (CLI) | payer MEDICARE, SELFPAY | PROVIDERS: PCP Physician Assistant; Visit Provider Specialist | DX: C67.5 Malignant neoplasm of bladder neck (principal); D49.4 Neoplasm of unspecified behavior of bladder; N40.1 Benign prostatic hyperplasia with lower urinary tract symptoms; N13.8 Other obstructive and reflux uropathy; R31.29 Other microscopic hematuria; R97.20 Elevated prostate specific antigen [PSA] | CPT/HCPCS: 52310; 81002; 87086; 99214 ==

== ENCOUNTER → 2022-03-31 13:41 | Outpatient (CLI) | payer MEDICARE, SELFPAY | PROVIDERS: PCP Physician Assistant; Visit Provider Specialist | DX: C67.5 Malignant neoplasm of bladder neck (principal); D49.4 Neoplasm of unspecified behavior of bladder; N40.1 Benign prostatic hyperplasia with lower urinary tract symptoms; N13.8 Other obstructive and reflux uropathy; R31.29 Other microscopic hematuria; R30.9 Painful micturition, unspecified | CPT/HCPCS: 81002; 87086 ==

== ENCOUNTER → 2022-04-06 10:10 | Outpatient (CLI) | payer MEDICARE, SELFPAY ==
[2022-04-06 12:52] LABS: Bilirubin Urine UA NEGATIVE (NEGATIVE); Color Urine UA YELLOW; Glucose Urine UA NEGATIVE (Negative); Ketones Urine UA NEGATIVE (NEGATIVE); Leukocyte Esterase Urine UA TRACE (NEGATIVE); Nitrite Urine UA NEGATIVE (Negative); Occult Blood Urine UA 3+ (Negative); Protein Urine UA 2+ (Negative); Specific Gravity Urine UA 1.025 (1.000-1.035); Urobilinogen Urine UA 0.2 E.U./dL (0.2); pH Urine UA 5.5 (4.5-8.0)
[2022-04-06 12:59] LABS: Appearance Urine UA Slightly Cloudy
[2022-04-06 13:07] LABS: Bacteria Urine None Seen; RBC Urine 10-30/HPF (0-5/HPF); Squamous Epithelial Cell Urine 1-5 /HPF (0-5/HPF); WBC Urine 1-5/HPF (0-5/HPF)
[2022-04-06 13:08] LABS: Culture Indicated Urine Specimen Cultured
== END ==
PROVIDERS: PCP Physician Assistant; Referring Provider Specialist; Visit Provider Specialist
DX: R31.29 Other microscopic hematuria (principal)
CPT/HCPCS: 81001; 87086

== ENCOUNTER → 2022-04-14 13:25 | Outpatient (CLI) | payer MEDICARE, SELFPAY | PROVIDERS: PCP Physician Assistant; Visit Provider Specialist | DX: C67.5 Malignant neoplasm of bladder neck (principal); D49.4 Neoplasm of unspecified behavior of bladder; R31.29 Other microscopic hematuria | CPT/HCPCS: 51720; 81002; 87086; J9030 ==

== ENCOUNTER → 2022-04-21 13:15 | Outpatient (CLI) | payer MEDICARE, SELFPAY | PROVIDERS: PCP Physician Assistant; Visit Provider Specialist | DX: C67.5 Malignant neoplasm of bladder neck (principal); D49.4 Neoplasm of unspecified behavior of bladder | CPT/HCPCS: 51720; 81002; 87086; J9030 ==

== ENCOUNTER → 2022-04-28 13:15 | Outpatient (CLI) | payer MEDICARE, SELFPAY | PROVIDERS: PCP Physician Assistant; Visit Provider Specialist | DX: C67.5 Malignant neoplasm of bladder neck (principal); D49.4 Neoplasm of unspecified behavior of bladder; N13.8 Other obstructive and reflux uropathy; N40.1 Benign prostatic hyperplasia with lower urinary tract symptoms; R31.29 Other microscopic hematuria | CPT/HCPCS: 51720; 81002; 87086; J9030 ==

== ENCOUNTER 2022-07-31 06:13 | Day surgery (SDC) | payer MEDICARE, SELFPAY ==
[2022-07-31] VITALS (7 sets, daily range): BP systolic 117–144; BP diastolic 68–82; PULSE 63–81; RESP 12–18; TEMP 36.2–36.6; O2SAT 94–97; BMI 27.5
[2022-07-31] MEDS: ACETAMINOPHEN IV 1,000 MG/100 ML VIAL 400 MG IV ×2 (06:47→07:55)
--- NOTE | 2022-07-31 07:09 | PM.PREOP ---
Pre-operative Note COVID-19 Criteria for continued procedure: Expected advancement of disease process, Deterioration of the patient's condition or overall health, Delay expected to result in less-positive ultimate med/surg outcome and Non-surgical alternatives not available or appropriate per current SOC Interval Note History & Physical reviewed/Exam performed by Physician: Yes Changes to H&P: No
[2022-07-31] MEDS: CEFAZOLIN 2 GM/100 ML PREMIX 100 ML IV (07:55)
--- NOTE | 2022-07-31 08:09 | SUR.OPER ---
Lithotomy on padded OR bed, head on pillow, arms secured on padded arm boards at <90 degrees abduction. Legs secured in padded yellow fins stirrups.
[2022-07-31] MEDS: WATER FOR INJECTION,STERILE 20 ML, mitoMYcin 20 MG INTRAVESIC (08:29)
--- NOTE | 2022-07-31 08:54 | P.OP_ITS ---
Operative Date/Time/Diagnoses Date of procedure: 07/31/22 Time of procedure: 08:30 Pre-op diagnosis: History of bladder cancer Post-op diagnosis: same Procedure & Clinicians Procedure: 1. Cystoscopy/Transurethral fulguration/destruction of bladder neoplasm. 2. Cystoscopy/installation mitomycin-C (20 mg). Same procedure as scheduled: Yes Indications: 1. History of bladder cancer. 2. Suspicious urothelium and vicinity of right anterior bladder neck. Surgeon: Donovan Montgomery Click Yes if Unassisted: Yes Anesthesia Type: General Operative Notes Findings: 1. Urethra-normal caliber without annular stricture or lesion. 2. External sphincter-coapted with normal overlying urothelium. 3. Prostate- 4.5+ cm length prostate urethra with normal overlying urothelium. 4. Bladder-2+ trabeculation. Well-healed enlarged resection bed at left floor and trigone and bladder neck. Again is seen a suspicious, proximally 5 mm area of the left anterior bladder neck that is raised. This area was cautery destroyed due to inaccessibility with biopsy forceps. Closure Type: not applicable Specimen(s): none sent Applied: catheter (Twenty Luxembourgish silicone catheter while mitomycin retained x2 hours.) Estimated Blood Loss (mL): 0 Blood products transfused: none Procedure in detail: Patient was positioned in supine was administered general anesthesia. He was then repositioned in semi-lithotomy and the lower abdomen, genitalia, and groin were then prepped and draped in sterile fashion. The 22 Luxembourgish jasso endoscope was then passed lower urinary tract with the findings as described above. The suspicious area could not be visualized adequately with the rigid cystoscope. Therefore common the flexible cystoscope was then prepared and passed the lower urinary tract and with retroflexion the area could be seen as described above. A 5 Luxembourgish Bugbee cautery was then advanced through the working channel of the scope in the lesion was fulguration destroyed with a surrounding perimeter. Hemostasis was excellent. The flexible cystoscope was then removed. A 20 Luxembourgish silicone Rosa catheter was then inserted, the balloon inflated to 10 cc, and the bladder contents drained. A 20 cc solution containing 20 mg of mitomycin C was then instilled in the bladder and a catheter plug was placed for anticipated 2 hour postoperative retention. The patient was then repositioned supine, was awakened, transferred to [facility], and transported recovery in stable condition. Complications: none Post-operative Condition: stable Disposition: PACU Plan for aftercare: Discharge home.
--- NOTE | 2022-07-31 11:14 | SUR.PHASEII ---
Mitomycin drained from bladder per order. Catheter balloon deflated and removed without difficulty per order.
== END 2022-07-31 11:31 | disposition home or self-care (01) ==
PROVIDERS: PCP Physician Assistant; Referring Provider Specialist; Visit Provider Specialist
PROC: 0TBB8ZZ Excision of Bladder, Via Natural or Artificial Opening Endoscopic (ICD-10-PCS; CPT 52500; principal; 2022-07-31 07:45)
DX: D49.4 Neoplasm of unspecified behavior of bladder (principal); Z85.51 Personal history of malignant neoplasm of bladder; N40.1 Benign prostatic hyperplasia with lower urinary tract symptoms; R97.20 Elevated prostate specific antigen [PSA]; N13.8 Other obstructive and reflux uropathy
CPT/HCPCS: 52500; J0131; J0690; J1100; J2405; J2704; J3010; J9280

== ENCOUNTER → 2022-09-04 08:58 | Outpatient (CLI) | payer MEDICARE, SELFPAY ==
[2022-09-04 10:38] LABS: Prostate Specific Antigen 5.74 ng/mL (0.10-4.00)
== END ==
PROVIDERS: PCP Physician Assistant; Referring Provider Specialist; Visit Provider Specialist
DX: R97.20 Elevated prostate specific antigen [PSA] (principal)
CPT/HCPCS: 36415; 84153

== ENCOUNTER → 2022-12-24 08:48 | Outpatient (CLI) | payer MEDICARE, SELFPAY ==
[2022-12-24 10:19] LABS: Prostate Specific Antigen 5.29 ng/mL (0.10-4.00)
== END ==
PROVIDERS: PCP Physician Assistant; Referring Provider Specialist; Visit Provider Specialist
DX: R97.20 Elevated prostate specific antigen [PSA] (principal)
CPT/HCPCS: 36415; 84153

== ENCOUNTER → 2023-03-24 10:09 | Outpatient (CLI) | payer MEDICARE, SELFPAY ==
[2023-03-26 07:40] LABS: PSA, Total 3.5 ng/mL (0.0-4.0)
== END ==
PROVIDERS: PCP Physician Assistant; Referring Provider Specialist; Visit Provider Specialist
DX: R97.20 Elevated prostate specific antigen [PSA] (principal)
CPT/HCPCS: 36415; 84153; 84154

== ENCOUNTER → 2023-03-31 10:35 | Outpatient (CLI) | payer OTHER, SELFPAY ==
--- NOTE | 2023-03-31 | DI.MRI.S_ITS ---
PROCEDURE: MR PELVIC PROSTATE PROTOCOL INDICATIONS: Elevated prostate specific antigen [PSA] TECHNIQUE: Coronal HASTE, axial T1 FSE with fat saturation, 3-plane nonbreath-hold T2 FSE. After the administration of contrast, dynamic axial, delayed axial and coronal VIBE or 2-D FLASH with fat saturation through the pelvis. Diffusion weighted imaging and ADC was performed. COMPARISON: None. FINDINGS: Image quality: Diffusion weighted and dynamic contrast enhanced images are diagnostic. Prostate: Gland size is 4.0 x 4.7 x 5.4 cm; ellipsoid gland volume is 53 mL. Lesion 1: Location: Left transition zone, predominately posterior, mid gland, on axial series 4, image 12 and sagittal series 6, image 15. Size: 1.7 x 2.2 cm. T2W signal: Partially capsulated, moderate T2 hypointense signal. DWI signal: Markedly hyperintense. ADC signal: Markedly hypointense. Enhancement: Yes. Extracapsular extension: No. No neurovascular involvement. PI-RADS score: 3 Genitourinary system: Bladder wall thickness is normal. Distal ureters are non distended. Bowel and peritoneum: No pathologic free pelvic fluid. Inferior colon and small bowel loops are normal in caliber. Colonic diverticulosis without evidence of diverticulitis. Nodes and vessels: No pelvic or inguinal adenopathy by size criteria. Iliac vessels are normal in caliber. Soft tissues: Fat within the inguinal canals. Bones: Marrow demonstrates normal overall signal, without lesions to suggest metastases. IMPRESSION: PI-RADS 3 lesion in the left transition zone of the mid gland, as described above. No pelvic lymphadenopathy by size criteria. No aggressive osseous abnormality. Dictated by: Lucien Pro M.D. on 03/31/2023 at 12:21 Approved by: Lucien Pro M.D. on 03/31/2023 at 12:27
== END ==
PROVIDERS: PCP Physician Assistant; Referring Provider Specialist; Visit Provider Specialist
DX: N42.9 Disorder of prostate, unspecified (principal); R97.20 Elevated prostate specific antigen [PSA]; K57.90 Diverticulosis of intestine, part unspecified, without perforation or abscess without bleeding
CPT/HCPCS: 72197; A9579

== ENCOUNTER → 2024-01-03 10:58 | Outpatient (CLI) | payer MEDICARE, SELFPAY ==
[2024-01-03 12:38] LABS: Prostate Specific Antigen 4.86 ng/mL (0.10-4.00)
== END ==
PROVIDERS: PCP Physician Assistant; Referring Provider Urology; Visit Provider Urology
DX: N40.1 Benign prostatic hyperplasia with lower urinary tract symptoms (principal); Z87.898 Personal history of other specified conditions; N13.8 Other obstructive and reflux uropathy
CPT/HCPCS: 36415; 84153

== ENCOUNTER → 2024-01-26 11:29 | Outpatient (CLI) | payer MEDICARE, SELFPAY ==
[2024-01-26 12:52] LABS: Estimated Glomerular Filt Rate > 60 mL/min (>60)
== END ==
PROVIDERS: PCP Physician Assistant; Referring Provider Urology; Visit Provider Urology
DX: R97.20 Elevated prostate specific antigen [PSA] (principal); N40.1 Benign prostatic hyperplasia with lower urinary tract symptoms; N13.8 Other obstructive and reflux uropathy; C67.9 Malignant neoplasm of bladder, unspecified
CPT/HCPCS: 36415; 82565

== ENCOUNTER → 2024-02-05 09:40 | Outpatient (CLI) | payer MEDICARE, SELFPAY ==
--- NOTE | 2024-02-05 09:41 | DI.CT.S_ITS ---
PROCEDURE: CT IVP A/P W/WO INDICATIONS: bladder cancer, please eval upper tracts TECHNIQUE: Optional 5 mm thick noncontrast images acquired from the diaphragm to the symphysis pubis. After the administration of intravenous contrast, 5 mm thick images acquired from the diaphragm to the symphysis pubis after a 10-minute delay. 2 mm thick coronal and sagittal reformats were then performed of the kidneys and ureters. For radiation dose reduction, the following was used: automated exposure control, adjustment of mA and/or kV according to patient size. COMPARISON: [facility], CT, CT IVP A/P W/WO, 01/07/2022, 9:50. FINDINGS: Image quality: Diagnostic. Kidneys and Ureters: Both kidneys are normal in size, without hydronephrosis or nephrolithiasis. No perinephric fat stranding. There is normal bilateral renal enhancement. Renal calyces appear normal in morphology when filled with contrast. Opacified portions of both ureters demonstrate normal caliber Bladder: Bladder wall thickness is normal. On the previous CT IVP, there may have been a small bladder mass in the region of the left ureterovesical junction in addition to extrinsic compression of the base of the bladder by the prostate. This is not definite. Reference previous axial image 212 of series 3. No such potential lesion is currently identified. Reference current axial image 128 of series 4. No suspicious bladder lesions seen on CT. No calcified bladder stones. OTHER: Lower chest: Unremarkable. Liver: No solid mass. Gallbladder: No radiopaque gallstones or wall thickening. Biliary ducts: No biliary dilation. Pancreas: No ductal dilation. Spleen: Size is within normal limits. Adrenal Glands: No adrenal nodules. Stomach and Bowel: Normal colonic caliber, without significant wall thickening. Advanced sigmoid diverticulosis. Question possible circumferential thickening of the distal rectum. Reference axial image 136 of series 4 and coronal image 107 of series 6. Peritoneum: No abnormal intraperitoneal fluid. No free air. Ventral Wall: No hernia. Abdominal Nodes: No retroperitoneal or mesenteric adenopathy by size criteria. Vessels: Aorta and inferior vena cava are normal in size. PELVIS: Pelvic Organs: Prostatomegaly with extrinsic compression on the base of the bladder.. Pelvic Nodes: No enlarged lymph nodes. Miscellaneous: Bilateral fat containing inguinal hernias are seen. Bones: No aggressive osseous abnormality. Bilateral L5 pars defects with anterolisthesis and bilateral L5 foraminal nerve root impingement. Old compressions of T12 and L1. IMPRESSION: 1. Possible small previous polypoid left bladder mass near the ureterovesical junction is no longer identifiable. No suspicious bladder lesions. Extrinsic compression on the base of the bladder by the prostate, which is enlarged. 2. Otherwise unremarkable examination of the kidneys, ureters, and bladder. No stones, hydronephrosis, or masses. 3. Question possible circumferential lesion of the distal rectum. 4. Bilateral L5 pars defects, anterolisthesis, and bilateral foraminal L5 nerve root impingement. 5. Old compression fractures. 6. Advanced sigmoid diverticulosis. Comment: Recommend digital examination in and colonoscopy to evaluate the distal rectum if this has not been done in the recent past. Dictated by: Hebert Delacruz M.D. on 02/06/2024 at 9:52 Approved by: Hebert Delacruz M.D. on 02/06/2024 at 10:06
== END ==
PROVIDERS: PCP Physician Assistant; Referring Provider Urology; Visit Provider Urology
DX: D49.4 Neoplasm of unspecified behavior of bladder (principal); K57.90 Diverticulosis of intestine, part unspecified, without perforation or abscess without bleeding; N40.0 Benign prostatic hyperplasia without lower urinary tract symptoms; K40.20 Bilateral inguinal hernia, without obstruction or gangrene, not specified as recurrent; M43.16 Spondylolisthesis, lumbar region; M48.55XS Collapsed vertebra, not elsewhere classified, thoracolumbar region, sequela of fracture
CPT/HCPCS: 74178; Q9967

== ENCOUNTER → 2024-07-05 10:31 | Outpatient (CLI) | payer MEDICARE, OTHER, SELFPAY ==
[2024-07-05 11:54] LABS: Prostate Specific Antigen 5.23 ng/mL (0.10-4.00)
== END ==
PROVIDERS: PCP Physician Assistant; Referring Provider Urology; Visit Provider Urology
DX: R97.20 Elevated prostate specific antigen [PSA] (principal); C67.9 Malignant neoplasm of bladder, unspecified
CPT/HCPCS: 36415; 84153

== ENCOUNTER 2024-12-30 15:26 | Emergency (ER) | payer MEDICARE, OTHER, SELFPAY ==
[2024-12-30 15:33] VITALS: BP 155/81; PULSE 69; RESP 18; TEMP 36.9; O2SAT 97; BMI 26.2
--- NOTE | 2024-12-30 15:37 | DI.CT.S_ITS ---
PROCEDURE: CT HEAD/BRAIN WO CON INDICATIONS: fall TECHNIQUE: Noncontrast 4.5 mm thick angled axial sections acquired from the foramen magnum to the vertex, with coronal and sagittal reformats. For radiation dose reduction, the following was used: automated exposure control, adjustment of mA and/or kV according to patient size. COMPARISON: None. FINDINGS: Image quality: Diagnostic. CSF spaces: Basal cisterns are patent. No extra-axial fluid collections. The ventricles are symmetric in size and shape. Brain: No intracranial bleeds or mass effect. There is cerebral volume loss, with resultant ventricular and sulcal prominence. There are periventricular and deep white matter chronic small vessel ischemic changes. There is intracranial internal carotid artery atherosclerosis. Skull and face: Right posterior parietal scalp contusion/hematoma. Calvarium and visualized facial bones appear intact, without suspicious lesions. Sinuses: Visualized sinuses and mastoids are clear. IMPRESSION: 1. CT head without acute intracranial abnormalities. 2. Age-related senescent changes and sequela of chronic small vessel ischemic disease. 3. Right posterior parietal scalp contusion/hematoma without underlying calvarial fractures. Dictated by: Vipin Carl M.D. on 12/30/2024 at 15:56 Approved by: Vipin Carl M.D. on 12/30/2024 at 15:58
--- NOTE | 2024-12-30 15:37 | DI.CT.S_ITS ---
PROCEDURE: CT CERVICAL SPINE WO CON INDICATIONS: fall TECHNIQUE: Noncontrast 3 mm thick sections acquired from the skull base to the T4 level. Sagittal and coronal reformats were then constructed. For radiation dose reduction, the following was used: automated exposure control, adjustment of mA and/or kV according to patient size. COMPARISON: None. FINDINGS: Image quality: Diagnostic. Bones: No acute fractures or dislocations. No acute compression fractures of the vertebral bodies. Craniocervical junction is intact. C1-C2 relationship is preserved. Visualized superior ribs are intact. Straightening of cervical lordosis which may be due to patient positioning and/or concurrent muscle spasms. Moderate multilevel cervical spondylosis. Soft tissues: Prevertebral soft tissues are normal in thickness. No paravertebral hematomas. No apical pneumothoraces. IMPRESSION: No displaced fracture or traumatic subluxation. Moderate multilevel cervical spondylosis. Mild straightening of normal cervical lordosis likely related to positioning and/or concurrent muscle spasms. Dictated by: Vipin Carl M.D. on 12/30/2024 at 15:58 Approved by: Vipin Carl M.D. on 12/30/2024 at 16:04
--- NOTE | 2024-12-30 16:29 | PC.NURSE ---
approx less than one cm lac noted, non bleeding, currently covered by gauze bandage
--- NOTE | 2024-12-30 16:56 | ED.FALL ---
HPI - Fall General Chief Complaint: Fall Stated Complaint: glf head injury Time Seen by Provider: 12/30/24 16:50 Source: patient Mode of arrival: Ambulatory History of Present Illness HPI Narrative: 74-year-old gentleman presents with head injury, hitting head against the pavement, after working on his driveway, moving a trailer. He denies any loss of consciousness, blurred vision, chest pain, neck pain, chest pain, shortness of breath, dyspnea on exertion, nausea, vomiting,or diarrhea. He is not on any anticoagulants. Other than what is stated 14 pt ROS is negative. Related Data Home Medications ?Medication ?Instructions ?Recorded ?Confirmed atorvastatin 20 mg tablet 20 mg PO DAILY 09/22/18 07/13/24 Previous Rx's ?Medication ?Instructions ?Recorded tamsulosin 0.4 mg capsule 0.4 mg PO QPM #90 caps 10/27/24 Allergies Allergy/AdvReac Type Severity Reaction Status Date / Time No Known Drug Allergies Allergy Verified 12/30/24 15:33 Review of Systems Review of Systems ROS Unobtainable: All systems reviewed & are unremarkable except as noted in HPI and below Patient History Medical History History of elevated PSA Elevated PSA History of malignant neoplasm of bladder 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 Bladder neoplasm Malignant neoplasm of bladder neck Microscopic hematuria BPH w urinary obs/LUTS Arthritis Surgical History Hx of cystoscopy (01/19/22) H/O vasectomy Family History Brother Cancer Father CAD (coronary artery disease) Mother Hypertension Social History marital status: number of children: 0 household members: friend(s) and none occupational status: other current occupational exposures/hazards: No 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 Well-developed patient, in mild distress. HEAD: Atraumatic. Normocephalic. EYES: Pupils equal round and reactive. Extraocular motions intact. No scleral icterus. No injection or drainage. ENT: Nose without bleeding, purulent drainage. Throat without erythema, tonsillar hypertrophy or exudate. Airway patent. NECK: Trachea midline. Non tender CARDIOVASCULAR: Regular rate and rhythm without murmurs, gallops, or rubs. RESPIRATORY: Clear to auscultation. Breath sounds equal bilaterally. No wheezes, rales, or rhonchi. GASTROINTESTINAL: Abdomen soft, non-tender, nondistended. EXTREMITIES: No edema or joint tenderness. BACK: Nontender without deformity or crepitance. No flank tenderness. NEURO: AOx3. SKIN: Scalp superficial laceration irregular 0.5x0.5cm Initial Vital Signs Initial Vital Signs: Vital Signs Temperature 98.5 F 12/30/24 15:33 Pulse Rate 69 12/30/24 15:33 Respiratory Rate 18 12/30/24 15:33 Blood Pressure 155/81 H 12/30/24 15:33 Pulse Oximetry 97 12/30/24 15:33 Oxygen Delivery Method Room Air 12/30/24 15:33 Procedures Laceration Repair Laceration 1: Time of procedure: 17:20 Site: scalp Size (cm): 0.5 Description: irregular Depth: simple, single layer Local Anesthetic: lidocaine 1% Amount of anesthesia used (mL): 2 Pre-repair: wound explored, irrigated extensively and deep structures intact Number of sutures: 2 (2 kelsie ) Course Orders Ordered: ED Orders 12/30/24 15:37 CT cervical spine wo con Stat CT head/brain wo con Stat Vital Signs Vital signs: Vital Signs - 8 hr 12/30/24 15:33 Temperature 98.5 F Pulse Rate 69 Respiratory Rate 18 Blood Pressure 155/81 H Pulse Oximetry 97 Oxygen Delivery Method Room Air MDM - Fall Imaging Data CT scan - head: Radiologist's Impression: [address] [address] [address] Scan Report Signed Patient: Rd Velazco MR#: [id number] : 1950 Acct:[id number] Age/Sex: 74 / M Date of Service: 12/30/24 Loc: ED Accession Number: [id number] Procedure: CT head/brain wo con Ordering Provider: Rd Romeo D.O. PROCEDURE: CT HEAD/BRAIN WO CON INDICATIONS: fall TECHNIQUE: Noncontrast 4.5 mm thick angled axial sections acquired from the foramen magnum to the vertex, with coronal and sagittal reformats. For radiation dose reduction, the following was used: automated exposure control, adjustment of mA and/or kV according to patient size. COMPARISON: None. FINDINGS: Image quality: Diagnostic. CSF spaces: Basal cisterns are patent. No extra-axial fluid collections. The ventricles are symmetric in size and shape. Brain: No intracranial bleeds or mass effect. There is cerebral volume loss, with resultant ventricular and sulcal prominence. There are periventricular and deep white matter chronic small vessel ischemic changes. There is intracranial internal carotid artery atherosclerosis. Skull and face: Right posterior parietal scalp contusion/hematoma. Calvarium and visualized facial bones appear intact, without suspicious lesions. Sinuses: Visualized sinuses and mastoids are clear. IMPRESSION: 1. CT head without acute intracranial abnormalities. 2. Age-related senescent changes and sequela of chronic small vessel ischemic disease. 3. Right posterior parietal scalp contusion/hematoma without underlying calvarial fractures. CT - cervical spine: Radiologist's Impression: [place] [address] CT Scan Report Signed Patient: Rd Velazco MR#: [id number] : 1950 Acct:[id number] Age/Sex: 74 / M Date of Service: 12/30/24 Loc: ED Accession Number: [id number] Procedure: CT cervical spine wo con Ordering Provider: Rd Romeo D.O. PROCEDURE: CT CERVICAL SPINE WO CON INDICATIONS: fall TECHNIQUE: Noncontrast 3 mm thick sections acquired from the skull base to the T4 level. Sagittal and coronal reformats were then constructed. For radiation dose reduction, the following was used: automated exposure control, adjustment of mA and/or kV according to patient size. COMPARISON: None. FINDINGS: Image quality: Diagnostic. Bones: No acute fractures or dislocations. No acute compression fractures of the vertebral bodies. Craniocervical junction is intact. C1-C2 relationship is preserved. Visualized superior ribs are intact. Straightening of cervical lordosis which may be due to patient positioning and/or concurrent muscle spasms. Moderate multilevel cervical spondylosis. Soft tissues: Prevertebral soft tissues are normal in thickness. No paravertebral hematomas. No apical pneumothoraces. IMPRESSION: No displaced fracture or traumatic subluxation. Moderate multilevel cervical spondylosis. Mild straightening of normal cervical lordosis likely related to positioning and/or concurrent muscle spasms. MDM Narrative Medical decision making narrative: Vital signs, nurse triage note, medication list, previous ER visits, and all imaging studies reviewed. CT head showed no acute intracranial abnormalities. Age-related senescent changes and sequela of chronic small-vessel ischemic disease. Right posterior parietal scalp contusion hematoma without underlying calvarial fracture. CT cervical no displaced fracture or traumatic subluxation. Moderate multilevel cervical spondylosis. History straightening of normal cervical lordosis likely related to positioning and/or concurrent muscle spasm. Wound irrigated and Two kelsie placed. Staple removal in 7-10 days. Differential diagnosis includes brain hemorrhage, contusion, closed head, injury, laceration repair. Discharge Plan Departure Patient Disposition: Home Clinical Impression: Laceration of scalp Qualifiers: Encounter type: initial encounter Qualified Code(s): S01.01XA - Laceration without foreign body of scalp, initial encounter Fall Qualifiers: Encounter type: initial encounter Qualified Code(s): W19.XXXA - Unspecified fall, initial encounter Activity Restrictions/Additional Instructions: Return with new or worsening symptoms. Staple removal in 7-10 days with PCP. Prescriptions: No Action tamsulosin 0.4 mg capsule 0.4 mg PO QPM Qty: 90 3RF atorvastatin 20 mg Tablet 20 mg PO DAILY Referrals: Sasha Sanchez PA-C [Primary Care Provider, Medical] Stand Alone Forms: Patient Portal/API
== END 2024-12-30 17:34 | disposition home or self-care (01) ==
PROVIDERS: Emergency Provider Family Medicine; PCP Physician Assistant
DX: S01.01XA Laceration without foreign body of scalp, initial encounter (principal); W18.30XA Fall on same level, unspecified, initial encounter
CPT/HCPCS: 12001; 70450; 72125; 99281; 99284

== ENCOUNTER → 2025-01-18 09:32 | Outpatient (CLI) | payer MEDICARE, OTHER, SELFPAY ==
[2025-01-18 11:51] LABS: Prostate Specific Antigen 4.17 ng/mL (0.10-4.00)
== END ==
PROVIDERS: PCP Physician Assistant; Referring Provider Urology; Visit Provider Urology
DX: R97.20 Elevated prostate specific antigen [PSA] (principal)
CPT/HCPCS: 36415; 84153